=== PATIENT | male | born 1955 | race Caucasian/White ===

== ENCOUNTER → 2018-04-29 08:35 | Outpatient (CLI) | payer OTHER, SELFPAY ==
--- NOTE | 2018-04-29 08:37 | RAD_ITS ---
STUDY: X-RAY - RIGHT KNEE REASON FOR EXAM: Male, 62 years old. Chronic pain. TECHNIQUE: 4 view(s) of the knee. COMPARISON: None. FINDINGS: Normal visualized distal femur. Normal visualized proximal tibia and fibula. Normal proximal tibiofibular articulation. There is no demonstrated fracture. There is chondrocalcinosis of the menisci in the medial and lateral joint compartments worse on the right side. There is mild narrowing of the medial joint compartment. Normal patellofemoral articulation. There is no demonstrated joint effusion. The soft tissue structures are unremarkable. RAD/Knee 4 or More Views IMPRESSION: Degenerative arthrosis. Electronically Signed: Cisco Francis MD at 8:24 EDT Tel , Service support ,
--- NOTE | 2018-04-29 08:37 | RAD_ITS ---
STUDY: X-RAY - LEFT KNEE REASON FOR EXAM: Male, 62 years old. Chronic pain. TECHNIQUE: For view(s) of the knee. COMPARISON: None. FINDINGS: Normal visualized distal femur. Normal visualized proximal tibia and fibula. Normal proximal tibiofibular articulation. The colon There again is chondrocalcinosis of the menisci the medial and lateral joint compartments unchanged since the prior examination. There is mild degenerative arthrosis of the medial joint compartment. Normal patellofemoral articulation. There is no demonstrated joint effusion. The soft tissue structures are unremarkable. RAD/Knee 4 or More Views IMPRESSION: Degenerative arthrosis unchanged since the prior exam. Electronically Signed: Cisco Francis MD at 8:22 EDT Tel , Service support ,
== END ==
PROVIDERS: Family Provider Family Medicine; PCP Family Medicine; Referring Provider Orthopaedic Surgery; Visit Provider Orthopaedic Surgery
DX: M25.561 Pain in right knee (principal); M25.562 Pain in left knee
CPT/HCPCS: 73564

== ENCOUNTER → 2020-05-06 08:23 | Outpatient (CLI) | payer OTHER, SELFPAY ==
[2018-04-29 08:38] VITALS: BMI 25.2
--- NOTE | 2020-05-06 08:53 | RAD_ITS ---
STUDY: X-RAY CHEST REASON FOR EXAM: Male, 64 years old. SOB TECHNIQUE: PA and lateral views of the chest. COMPARISON: None. FINDINGS: Hyperinflation. The lungs are clear. There is no demonstrated pleural abnormality. Normal size heart. Normal mediastinum and enrike. Normal visualized pulmonary arteries. There is atherosclerotic tortuosity of the aortic arch and descending thoracic aorta. Normal visualized thoracic spine. Normal visualized ribs, clavicles, and shoulders. There is no demonstrated abnormality of the visualized soft tissue structures of the upper abdomen. RAD/Chest PA and Lateral IMPRESSION: Hyperinflation. Electronically Signed: Laureano Muller MD at 10:58 EDT , Service support ,
[2020-05-06 10:44] LABS: AST(SGOT) 25 U/L (15-37); Alanine Aminotransfer ALT/SGPT 28 U/L (16-61); Albumin, Serum 3.6 g/dL (3.2-5.0); Alkaline Phosphatase 81 U/L (45-117); Anion Gap 5 (5-15); BUN 14 mg/dL (7-18); BUN/Creat Ratio 16.6 RATIO (10-20); Calcium,Total 9.1 mg/dL (8.5-10.1); Chloride 105 mmol/L (98-107); Cholesterol 246 mg/dL (200); Creatinine, Serum 0.84 mg/dL (0.70-1.30); EST Glomerular Filtration Rate 97 mL/min (>60); Est Glom Filt Rate - Afr Amer 117 mL/min (>60); Globulin 3.5 g/dL (2.2-4.2); Glucose 90 mg/dL (74-106); High Density Lipoprotein 93 mg/dL; PSA,Total- Diagnostic 0.03 ng/mL (0.0-4.0); Potassium 4.1 mmol/L (3.5-5.1); Protein, Total 7.1 g/dL (6.4-8.2); Sodium Level 140 mmol/L (136-145); Triglycerides 79 mg/dL; Very Low Density Lipoprotein 16 mg/dL (5-40)
[2020-05-06 12:06] LABS: Absolute Lymphocyte Count 1.41 X10^3/uL (0.83-4.51); Absolute Neutrophil Count 2.7 X10^3/uL (2.0-7.7); Basophil# 0.03 X10^3/uL; Basophil% 0.6 % (0-1); Eosinophil# 0.16 X10^3/uL; Eosinophils% 3.2 % (0-5); Hematocrit 51.1 % (40-54); Hemoglobin 16.6 g/dL (13.0-16.5); Lymphocyte # 1.41 X10^3/ul (4.0); Lymphocyte % 28.3 % (19-41); Mean Corp Hgb Conc 32.5 g/dL (32-36); Mean Corpuscular Hgb 32.3 pg (27.0-32.0); Mean Corpuscular Volume 99.4 fL (80-94); Mean Platelet Vol. 10.7 fl (6.2-12.0); Monocyte# 0.64 X10^3/uL; Monocyte% 12.8 % (0-10); NRBC Flagged by Analyzer 0 % (0-5); Neutrophil # 2.73 X10^3/uL (2.7-7.7); Neutrophil % 54.7 % (47-70); Platelet Count 180 K/mm3 (150-450); RBC Distribution Width CV 12.9 % (11.6-14.6); RBC Distribution Width SD 48.1 fl (35.1-43.9); Red Blood Count 5.14 M/mm3 (4.6-6.2)
== END ==
PROVIDERS: PCP Family Medicine; Referring Provider Family Medicine; Visit Provider Family Medicine
DX: R06.02 Shortness of breath (principal); I49.9 Cardiac arrhythmia, unspecified; Z13.220 Encounter for screening for lipoid disorders; Z13.1 Encounter for screening for diabetes mellitus; Z85.46 Personal history of malignant neoplasm of prostate
CPT/HCPCS: 36415; 71046; 80053; 80061; 84153; 85025

== ENCOUNTER → 2020-06-20 08:03 | Outpatient (CLI) | payer OTHER, SELFPAY ==
[2020-06-19 10:30] VITALS: BMI 25.9
--- NOTE | 2020-06-21 13:57 | PFTCOMP ---
INTRODUCTION: The patient is a 65-year-old male that presents for pulmonary function studies secondary to a diagnosis of shortness of breath. Respiratory therapy reports good patient effort. Bronchodilators were used during testing. INTERPRETATION: Forced expiration spirometry demonstrates the presence of a mild large airways obstructive ventilatory defect. There was no significant response to aerosolized bronchodilators. Spirograms are of good quality but do not plateau indicating slow emptying of the lungs. Body plethysmography was performed and reveals lung volumes to be within normal limits. Diffusing capacity by single breath CO is also within normal limits. IMPRESSION: Irreversible mild large airways obstructive ventilatory defect with preserved lung volumes and diffusing capacity.
== END ==
PROVIDERS: PCP Family Medicine; Referring Provider Family Medicine; Visit Provider Family Medicine
DX: R06.02 Shortness of breath (principal)
CPT/HCPCS: 94060; 94726; 94729

== ENCOUNTER → 2020-07-04 06:09 | Outpatient (CLI) | payer OTHER, SELFPAY ==
[2020-06-19 10:30] VITALS: BMI 25.9
--- NOTE | 2020-07-04 06:18 | ECHOD_ITS ---
Reason For Study: SAL Procedure This was a 2D Doppler, Color Flow transthoracic echocardiogram. Exam performed in department. Left Ventricle Normal LV size. Left ventricular systolic function is normal. The estimated ejection fraction is 60 %. No regional wall motion abnormalities noted. Right Ventricle Normal RV size. Normal systolic function. Atria Normal left atrium. Normal right atrium. Mitral Valve Mild diffuse mitral valve thickening. Mild (1+) eccentric mitral valve insufficiency. Tricuspid Valve Normal tricuspid valve. Aortic Valve Normal aortic valve. Trisinus/trileaflet aortic valve. Pulmonic Valve Normal pulmonic valve. Great Vessels Normal aortic root. The pulmonary artery is normal size. Normal inferior vena cava. Pericardium/Pleural No pericardial effusion. MMode/2D Measurements & Calculations LVIDd: 4.4 cm IVSd: 1.0 cm Ao root diam: 4.2 cm LVIDs: 2.4 cm LVPWd: 0.89 cm RVDd: 3.4 cm FS: 44.5 % LAV(MOD-bp): 33.6 ml LVAd ap4: 31.4 cm2 LVAd ap2: 30.5 cm2 LAV(MOD-bp) Indexed: 16.9 ml/m2 LVLd ap4: 8.8 cm LVLd ap2: 8.4 cm LAV(MOD-sp2): 35.6 ml EDV(MOD-sp4): 93.8 ml EDV(MOD-sp2): 94.1 ml LAV(MOD-sp4): 31.1 ml EDV(sp4-el): 95.8 ml EDV(sp2-el): 94.5 ml LVAs ap4: 19.3 cm2 LVAs ap2: 17.2 cm2 LVLs ap4: 7.3 cm LVLs ap2: 7.2 cm ESV(MOD-sp4): 44.1 ml ESV(MOD-sp2): 35.1 ml ESV(sp4-el): 43.6 ml ESV(sp2-el): 35.0 ml EF(MOD-sp4): 53.0 % EF(MOD-sp2): 62.7 % EF(sp4-el): 54.5 % SV(MOD-sp4): 49.6 ml SV(MOD-sp2): 59.0 ml SV(sp4-el): 52.2 ml LA dimension(2D): 2.8 cm LA A4 area: 13.3 cm2 RA A4 area: 14.2 cm2 Doppler Measurements & Calculations MV E max sagar: 45.0 cm/sec Lat Peak E' Sagar: 6.1 cm/sec Med Peak E' Sagar: 5.2 cm/sec MV A max sagar: 52.8 cm/sec E/E' lat: 7.3 E/E' med: 8.7 MV E/A: 0.85 Ao V2 max: 103.9 cm/sec LV V1 max: 78.9 cm/sec PA V2 max: 75.3 cm/sec Ao max P.3 mmHg LV V1 max P.5 mmHg ECHO/Echo Complete Interpretation Summary Normal LV size. Left ventricular systolic function is normal. The estimated ejection fraction is 60 %. Structurally normal valves. Ordering Physician: Sam Montano Referring Physician: Urban Reddy Performed By: Evelyn Payton RDCS
--- NOTE | 2020-07-04 17:06 | STRESSREP ---
Stress Test Report Exercise myocardial perfusion stress test. 65-year-old man with a history of premature ventricular complexes. Stress protocol: Resting EKG demonstrates sinus bradycardia with a rate of 65 bpm resting blood pressure is 138/86 mmHg. The patient exercised according to regular Gabo protocol for total duration of 12 minutes the maximum heart rate attained was 162 bpm which was 105% of maximum predicted heart rate the maximum workload was 13.7 metabolic equivalents. The patient maintained sinus rhythm throughout the recording. Patient completed stage IV of the Gabo protocol. Occasional premature ventricular and atrial complexes were noted. Upsloping EKG changes only were noted with did not meet the criteria for ischemia. The peak blood pressure was 160/82 mmHg. Myocardial perfusion protocol. 11.8 mCi of technetium 99m sestamibi was injected at rest. The patient exercised according to regular Gabo protocol and at peak exercise 33.7 mCi of technetium 99m sestamibi was injected stress images were obtained stress and rest images were reconstructed and compared in the short axis vertical long horizontal long axis. Gated images were also obtained per Perfusion SPECT analysis: Review of the stress images demonstrate normal uptake of tracer noted in all areas of the myocardium. The resting images similarly demonstrate normal uptake of tracer noted in all areas of the myocardium. No areas of reversibility are noted to suggest ischemia. No previous infarct is noted. Gated SPECT analysis: Gated images could not be obtained. Conclusion: Exercise myocardial perfusion stress test with no evidence of ischemia noted at a high workload. Excellent functional capacity.
== END ==
PROVIDERS: PCP Family Medicine; Referring Provider Internal Medicine Cardiovascular Disease; Visit Provider Internal Medicine Cardiovascular Disease
DX: R06.02 Shortness of breath (principal); R06.00 Dyspnea, unspecified; I49.3 Ventricular premature depolarization
CPT/HCPCS: 78452; 93017; 93306; A9500; A4216

== ENCOUNTER → 2023-01-08 | Outpatient (CLI) | payer OTHER, SELFPAY ==
--- NOTE | 2023-01-08 10:16 | RAD_ITS ---
STUDY: X-RAY - ACUTE ABDOMINAL SERIES REASON FOR EXAM: Male, 67 years old. Left flank pain. TECHNIQUE: Single view of the chest. Supine, and erect view(s) of the abdomen were obtained. COMPARISON: Chest dated June 2020. FINDINGS: Stable mild hyperinflation. Borderline cardiomegaly with aortic tortuosity unchanged. Normal mediastinum and enrike. Normal visualized pulmonary arteries. Normal bowel gas pattern with air seen to the rectum. Moderate to marked amount of feces in the colon. Normal visualized osseous structures. RAD/Acute Abdomen Inc Chest IMPRESSION: Stable chest. Moderate amount of feces in the colon. No acute abnormality of the chest, abdomen or pelvis. Electronically Signed: Fito Bonilla MD at 12:24 EST ,
[2023-01-08 12:04] LABS: ALB/GLOB Ratio 1.2 RATIO (0.9-2.4); AST(SGOT) 26 U/L (15-37); Alanine Aminotransfer ALT/SGPT 31 U/L (16-61); Albumin, Serum 3.7 g/dL (3.2-5.0); Alkaline Phosphatase 75 U/L (45-117); Anion Gap 4 (5-15); BUN 16 mg/dL (7-18); Calcium,Total 8.7 mg/dL (8.5-10.1); Chloride 106 mmol/L (98-107); EST Glomerular Filtration Rate 102 mL/min (>60); Est Glom Filt Rate - Afr Amer 124 mL/min (>60); Globulin 3.2 g/dL (2.2-4.2); Glucose 88 mg/dL (74-106); PSA,Total - Annual Screen 0.06 ng/mL (0.00-4.00); Potassium 4.2 mmol/L (3.5-5.1); Protein, Total 6.9 g/dL (6.4-8.2); Sodium Level 140 mmol/L (136-145)
== END | disposition home or self-care (01) ==
PROVIDERS: PCP Family Medicine; Referring Provider Family Medicine; Visit Provider Family Medicine
DX: R10.9 Unspecified abdominal pain (principal)
CPT/HCPCS: 36415; 74022; 80053; 84153; G0103